=== PATIENT | female | born 1995 | race Caucasian/White ===

== ENCOUNTER 2017-09-10 10:03 | Emergency (ER) | payer OTHER ==
[2017-09-10] MEDS: KETOROLAC 60 MG INJ IM (12:55)
[2017-09-10] MEDS: CYCLOBENZAPRINE 10 MG TAB PO (12:55)
[2017-09-10 13:06] LABS: ADD UMIC YES; UR ASCORBIC ACID NEGATIVE (NEGATIVE); UR BILIRUBIN (Dip) NEGATIVE (NEGATIVE); UR BLOOD (Dip) 2+ mg/dL (NEGATIVE); UR CLARITY SLIGHTLY CLOUDY (CLEAR); UR COLOR YELLOW (YELLOW); UR GLUCOSE (Dip) NEGATIVE (NEGATIVE); UR KETONES (Dip) NEGATIVE (NEGATIVE); UR LEUKOCYTE ESTERASE (Dip) NEGATIVE Leu/ul (NEGATIVE); UR NITRITE (Dip) NEGATIVE (NEGATIVE); UR RBC 7 /HPF (0-5); UR SPECIFIC GRAVITY (Dip) 1.015 (1.003-1.030); UR SQUAMOUS EPITHELIAL CELL FEW /HPF (FEW); UR TOTAL PROTEIN (Dip) NEGATIVE (NEGATIVE); UR UROBILINOGEN (Dip) NEGATIVE (NEGATIVE); UR WBC 1 /HPF (0-5)
== END 2017-09-10 14:05 | disposition home or self-care (01) ==
LOC: FTE 10:03
DX: M54.41 Lumbago with sciatica, right side (principal)
CPT/HCPCS: 72100; 81001; 96372; 99284-25

== ENCOUNTER 2018-01-09 15:03 | Emergency (ER) | payer OTHER ==
[2018-01-09] MEDS: ONDANSETRON (ODT) 4 MG TAB ODT (16:14)
[2018-01-09] MEDS: ACETAMINOPHEN 325 MG TAB PO (16:14)
== END 2018-01-09 17:12 | disposition home or self-care (01) ==
LOC: FTE 15:03
DX: G44.209 Tension-type headache, unspecified, not intractable (principal)
CPT/HCPCS: 99283; Z7502

== ENCOUNTER 2018-05-06 15:44 | Emergency (ER) | payer OTHER ==
[2018-05-06] MEDS: METOCLOPRAMIDE 10 MG TAB PO (16:10)
[2018-05-06] MEDS: FAMOTIDINE 20 MG TAB PO (16:10)
[2018-05-06 16:22] LABS: ADD UMIC YES; UR ASCORBIC ACID NEGATIVE (NEGATIVE); UR BILIRUBIN (Dip) NEGATIVE (NEGATIVE); UR BLOOD (Dip) 2+ mg/dL (NEGATIVE); UR CLARITY SLIGHTLY CLOUDY (CLEAR); UR COLOR STRAW (YELLOW); UR GLUCOSE (Dip) NEGATIVE (NEGATIVE); UR KETONES (Dip) NEGATIVE (NEGATIVE); UR LEUKOCYTE ESTERASE (Dip) 2+ Leu/ul (NEGATIVE); UR NITRITE (Dip) NEGATIVE (NEGATIVE); UR RBC 24 /HPF (0-5); UR SPECIFIC GRAVITY (Dip) 1.012 (1.003-1.030); UR SQUAMOUS EPITHELIAL CELL FEW /HPF (FEW); UR TOTAL PROTEIN (Dip) NEGATIVE (NEGATIVE); UR UROBILINOGEN (Dip) NEGATIVE (NEGATIVE); UR WBC 28 /HPF (0-5)
[2018-05-06] MEDS: metroNIDAZOLE 500 MG TAB PO (17:18)
[2018-05-06] MEDS: CEPHALEXIN 500 MG CAP PO (17:18)
== END 2018-05-06 17:24 | disposition home or self-care (01) ==
LOC: FTE 15:44
DX: N39.0 Urinary tract infection, site not specified (principal); N76.0 Acute vaginitis
CPT/HCPCS: 81001; 81025; 87210; 87591; 99283

== ENCOUNTER 2019-01-26 20:24 | Emergency (ER) | payer SELFPAY, OTHER | END 2019-01-26 22:41 | disposition left against medical advice (07) | LOC: E/R 20:24 | DX: Z53.21 Procedure and treatment not carried out due to patient leaving prior to being seen by health care provider (principal) ==

== ENCOUNTER 2019-01-27 11:16 | Emergency (ER) | payer OTHER ==
[2019-01-27] MEDS: ACETAMINOPHEN 500 MG TAB PO (11:37)
== END 2019-01-27 12:41 | disposition home or self-care (01) ==
LOC: E/R 11:16
DX: O9A.212 Injury, poisoning and certain other consequences of external causes complicating pregnancy, second trimester (principal); S80.11XA Contusion of right lower leg, initial encounter; S86.912A Strain of unspecified muscle(s) and tendon(s) at lower leg level, left leg, initial encounter; R10.9 Unspecified abdominal pain; S80.212A Abrasion, left knee, initial encounter; W01.0XXA Fall on same level from slipping, tripping and stumbling without subsequent striking against object, initial encounter; Y92.9 Unspecified place or not applicable; Z3A.18 18 weeks gestation of pregnancy
CPT/HCPCS: 76805; 99284-25

== ENCOUNTER 2019-02-10 11:45 | Outpatient (CLI) | payer OTHER ==
[2019-02-10 12:54] LABS: ADD MAN DIFF? NO
[2019-02-10 12:56] LABS: WHITE BLOOD COUNT 5.3 10^3/ul (4.8-10.8)
[2019-02-10 12:56] LABS: EOSINOPHILS % 0.6 % (0.0-7.0); HEMATOCRIT 31.2 % (37.0-47.0); HEMOGLOBIN 10.1 g/dl (12.0-16.0); LYMPHOCYTES # 1.5 10^3/ul (0.8-2.9); LYMPHOCYTES % 28.6 % (15.0-51.0); MEAN CORPUSCULAR HEMOGLOBIN 27.9 pg (29.0-33.0); MEAN CORPUSCULAR HGB CONC 32.4 g/dl (32.0-37.0); MEAN CORPUSCULAR VOLUME 86.2 fl (82.0-101.0); MEAN PLATELET VOLUME 10.5 fl (7.4-10.4); MONOCYTE # 0.3 10^3/ul (0.3-0.9); MONOCYTES % 5.7 % (0.0-11.0); NEUTROPHIL # 3.4 10^3/ul (1.6-7.5); NEUTROPHILS % 64.7 % (39.0-77.0); PLATELET COUNT 224 10^3/UL (140-415); RED BLOOD COUNT 3.62 10^6/ul (4.20-5.40); RED CELL DISTRIBUTION WIDTH 13.4 % (11.5-14.5)
[2019-02-10 13:05] LABS: ADD UMIC YES; UR ASCORBIC ACID NEGATIVE (NEGATIVE); UR BILIRUBIN (Dip) NEGATIVE (NEGATIVE); UR BLOOD (Dip) 1+ mg/dL (NEGATIVE); UR CLARITY CLEAR (CLEAR); UR COLOR YELLOW (YELLOW); UR GLUCOSE (Dip) 2+ mg/dL (NEGATIVE); UR KETONES (Dip) 2+ mg/dL (NEGATIVE); UR LEUKOCYTE ESTERASE (Dip) NEGATIVE Leu/ul (NEGATIVE); UR MUCUS MODERATE /HPF (NONE SEEN); UR NITRITE (Dip) NEGATIVE (NEGATIVE); UR RBC 1 /HPF (0-5); UR TOTAL PROTEIN (Dip) NEGATIVE (NEGATIVE); UR UROBILINOGEN (Dip) NEGATIVE (NEGATIVE); UR WBC 1 /HPF (0-5)
== END 2019-02-10 15:50 | disposition home or self-care (01) ==
LOC: OBT 11:45 → L-D 11:46 → OBT 15:50
DX: O26.892 Other specified pregnancy related conditions, second trimester (principal); R10.30 Lower abdominal pain, unspecified; Z3A.21 21 weeks gestation of pregnancy
CPT/HCPCS: 76775; 76817; 81001; 85025; 87086